=== PATIENT | female | born 1985 | race Two or more races ===

== ENCOUNTER 2016-08-30 18:41 | Emergency (ER) | payer SELFPAY ==
[~2016-08-30] VITALS: Ht 167.6 cm; Wt 56.0 kg
[~2016-08-30 18:41] MED LIST: MEDR4PAK3 PO; VENTAER INH
[2016-08-30 18:58] VITALS: BP 114/57; PULSE 78; RESP 12; TEMP 100; O2SAT 100
[2016-08-30] MEDS ORDERED: ERYTOIN10 LEFT EYE (19:34)
--- NOTE | 2016-08-30 19:35 | PD ---
HPI Chief Complaint: Foreign Body Time Seen by Provider: 19:34 Travel History International Travel<30 days: No Contact w/Intl Traveler<30days: No Traveled to known affect area: No History of Present Illness HPI 30-year-old female presents to the emergency room for evaluation of left eye redness, irritation, and drainage for the past 2 days. She had an injury 3 days ago in which the door struck her left open eye. Denies symptoms starting at that time. States they started the following morning. She woke up with her left eye slightly crusty. Reports associated photophobia and the son and blurry vision. She has not done anything for her symptoms. Denies significant pain. Denies any other upper respiratory symptoms. PFSH Social History Alcohol Use: No Tobacco Use: No Substance Use: No Allergies-Medications (Allergen,Severity, Reaction): Coded Allergies: No Known Allergies (Unverified , 05/12/15) Reported Meds & Prescriptions Reported Meds & Active Scripts Active Erythromycin Opth Oint 5 Mg/Gm Oint 1 Applic LEFT EYE QID Medrol Dosepak (Methylprednisolone) 4 Mg Madi 4 Mg PO DIRECTED TAKE DIRECTED Ventolin Hfa (Albuterol Sulfate) 18 Gm Aero 1 Puff INH Q4 PRN Review of Systems Except as stated in HPI: all other systems reviewed are Neg Physical Exam Narrative GENERAL: Well-nourished, well-developed female in no acute distress. Afebrile. Ambulatory.. SKIN: Focused skin assessment warm/dry. HEAD: Normocephalic. EYES: PERRL, EOMI without pain. No scleral icterus. Forcing staining reveals no corneal abrasion, ulceration, or foreign body. Negative Mary Ellen sign. Lid eversion reveals no foreign body. Visual acuity 20/15 bilaterally. Positive red light reflexes bilaterally. No photophobia on exam. Mild to moderate injection of the left eye. No chemosis. No discharge. NECK: Supple, trachea midline. No JVD or lymphadenopathy. CARDIOVASCULAR: Regular rate and rhythm without murmurs, gallops, or rubs. RESPIRATORY: Breath sounds equal bilaterally. No accessory muscle use. PSYCHIATRIC: No delusional thought processes. No hallucinations. Data Data Last Documented VS Vital Signs Date Time Temp Pulse Resp B/P Pulse Ox O2 Delivery O2 Flow Rate FiO2 08/30/16 18:58 100.0 78 12 114/57 100 MDM Medical Decision Making Medical Screen Exam Complete: Yes Emergency Medical Condition: Yes Medical Record Reviewed: Yes Differential Diagnosis Conjunctivitis, uveitis, scleritis Narrative Course 30-year-old female presents to the emergency room for evaluation of left eye redness, irritation, and drainage for the past 2 days. Patient had an injury 3 days ago. States the onset of symptoms was delayed. Physical exam is reassuring. Visual acuity is 20/15 bilaterally. Fluorescein staining reveals no foreign body or evidence of corneal disruption. Negative Mary Ellen sign. EOMI without pain. No photophobia exam. Physical exam is most consistent with conjunctivitis. Given patient's history, it is uncertain whether the injury introduced bacteria or was just incidental. She will be treated empirically with erythromycin and told to follow up with an bull chain operator. Told to return for worsening symptoms. Diagnosis Primary Impression: Conjunctivitis, left eye Qualified Code: H10.32 - Acute conjunctivitis of left eye, unspecified acute conjunctivitis type Referrals: Merlene James MD Patient Instructions: Conjunctivitis (ED), General Instructions Additional Instructions: Rest and drink plenty of fluids. Apply ointment as directed, for 5-7 days. Follow-up with bull chain operator. Return to the emergency room for worsening symptoms. Med/Other Pt SpecificInfo: Prescription(s) given Scripts Erythromycin Opth Oint 5 Mg/Gm Oint1 Applic LEFT EYE QID #1 TUBE Ref 0 Prov:Reginald Art MD 08/30/16 Disposition: 01 DISCHARGE HOME Condition: Stable Eve Velasquez Aug 30, 2016 19:35
== END 2016-08-30 19:54 | disposition home or self-care (01) ==
LOC: EDBD → PHEFT 18:41
DX: H10.32 Unspecified acute conjunctivitis, left eye (principal)
CPT/HCPCS: 99283

== ENCOUNTER 2016-09-02 10:04 | Emergency (ER) | payer SELFPAY ==
[~2016-09-02] VITALS: Ht 167.6 cm; Wt 56.0 kg
[~2016-09-02 10:04] MED LIST changes: +ERYTOIN10 LEFT EYE
[2016-09-02 10:10] VITALS: BP 102/54; PULSE 80; RESP 16; TEMP 98.8; O2SAT 100
--- NOTE | 2016-09-02 10:55 | PD ---
HPI Chief Complaint: Eye Problems/Injury Time Seen by Provider: 10:33 Travel History International Travel<30 days: No Contact w/Intl Traveler<30days: No Traveled to known affect area: No History of Present Illness HPI The patient was seen and examined in the presence of the nurse. This patient was seen here 3 days ago and diagnosed with conjunctivitis of the left eye. She is started on erythromycin ointment. She came back today because she has not improved. Prior still red. She is not having eye pain or vision loss. The day before the symptoms started she was hit in the eye but did not have any redness or discomfort or any problem until the following day. She did have drainage from the eye and it was felt infection more likely than traumatic injury. 3 days ago she got recommendations to follow-up with director child but she has not made any effort to do so. Instead she came back here. Duration 3 days PFSH Past Medical History Hx Anticoagulant Therapy: No Diabetes: No Tetanus Vaccination: > 5 Years Influenza Vaccination: No ?: Not Social History Alcohol Use: No Tobacco Use: No Substance Use: No Allergies-Medications (Allergen,Severity, Reaction): Coded Allergies: No Known Allergies (Unverified , 09/02/16) Reported Meds & Prescriptions Reported Meds & Active Scripts Active Erythromycin Opth Oint 5 Mg/Gm Oint 1 Applic LEFT EYE QID Review of Systems General / Constitutional: No: Fever HENT: No: Headaches Cardiovascular: No: Chest Pain or Discomfort Physical Exam Narrative SKIN: Focused skin assessment reveals no rash or ulcers. Skin is warm and dry. Palpation shows no induration or nodules. NECK: Symmetrical appearance, midline trachea. No mass or crepitus. Thyroid without enlargement, tenderness, or mass. Right sclerae clear Left sclera shows some diffuse injection Pupil function is normal Extraocular muscles intact No active drainage at this time Data Data Last Documented VS Vital Signs Date Time Temp Pulse Resp B/P Pulse Ox O2 Delivery O2 Flow Rate FiO2 09/02/16 10:10 98.8 80 16 102/54 100 MDM Medical Decision Making Medical Screen Exam Complete: Yes Emergency Medical Condition: Yes Medical Record Reviewed: Yes Differential Diagnosis Conjunctivitis, traumatic iritis, scleral irritation Narrative Course I have reviewed the patient's electronic medical record. I reviewed her visit from 3 days ago Reiterated that she should follow-up with director child for more detailed eye exam I think she most likely has an acute viral conjunctivitis and therefore the erythromycin medication is not going to do much. There is no purulent drainage. Diagnosis Primary Impression: Conjunctivitis, left eye Qualified Code: B30.9 - Acute viral conjunctivitis of left eye Additional Instructions: Follow-up with director child as we recommended 3 days ago Disposition: 01 DISCHARGE HOME Condition: Stable Dakota Mead MD Sep 02, 2016 10:55
== END 2016-09-02 11:00 | disposition home or self-care (01) ==
LOC: EDBD → PHED 10:04
DX: B30.9 Viral conjunctivitis, unspecified (principal)
CPT/HCPCS: 99282

== ENCOUNTER 2016-09-17 11:09 | Emergency (ER) | payer SELFPAY ==
[~2016-09-17] VITALS: Ht 167.6 cm; Wt 57.0 kg
[~2016-09-17 11:09] MED LIST changes: -MEDR4PAK3 PO; -VENTAER INH
[2016-09-17 11:12] VITALS: BP 116/62; PULSE 83; RESP 16; TEMP 98.6; O2SAT 100
--- NOTE | 2016-09-17 11:39 | PD ---
HPI Chief Complaint: Dizziness Time Seen by Provider: 11:38 Travel History International Travel<30 days: No Contact w/Intl Traveler<30days: No Traveled to known affect area: No History of Present Illness HPI 31-year-old Afro-[place] female presents the emergency department with episode of dizziness and lightheadedness earlier this morning. She had nausea at this time. She had no vomiting. She has no headache or other current symptoms at this time. Patient denies history of anemia, diabetes, and does not know if she might be . Her last partial. It was August 15, but she states she has irregular periods. She has no recent heavy vaginal bleeding or abdominal has no urinary symptoms or vaginal symptoms. She denies shortness of breath with exertion. She currently feels well. She has no known drug allergies. PFSH Past Medical History Medical History: Denies Significant Hx Hx Anticoagulant Therapy: No Diabetes: No Influenza Vaccination: No ?: Unknown LMP: AUGUST 15, 2016 Past Surgical History Surgical History: No Previous Surgery Social History Alcohol Use: No Tobacco Use: No Substance Use: No Allergies-Medications (Allergen,Severity, Reaction): Coded Allergies: No Known Allergies (Unverified , 09/17/16) Reported Meds & Prescriptions Reported Meds & Active Scripts Active ( Vit-Ferrous Fumarate) 1 Tab Tab 1 Tab PO DAILY Zofran (Ondansetron HCl) 4 Mg Tab 4 Mg PO Q6HR PRN Cephalexin 500 Mg Cap 500 Mg PO Q8H Review of Systems Except as stated in HPI: all other systems reviewed are Neg General / Constitutional: No: Fever Eyes: No: Visual changes HENT: Positive: Lightheadedness, No: Headaches, Vertigo, Sore Throat, Rhinitis , Rhinorrhea, Congestion, Nosebleed, Neck Stiffness, Neck Pain, Masses, Gingival Bleeding, Dental Difficulties, Ear Discharge, Earache Cardiovascular: No: Chest Pain or Discomfort Respiratory: No: Shortness of Breath Gastrointestinal: Positive: Nausea, No: Vomiting, Diarrhea, Abdominal Pain Genitourinary: No: Dysuria, Discharge, Vaginal Bleeding Musculoskeletal: No: Pain Skin: No Rash Neurologic: No: Weakness Psychiatric: No: Depression Endocrine: No: Polydipsia Hematologic/Lymphatic: No: Easy Bruising Physical Exam Narrative GENERAL: Patient appears in no acute distress. SKIN: Warm and dry. Normal color. Mild pallor. HEAD: Atraumatic. Normocephalic. EYES: Pupils equal and round. No scleral icterus. Moderate conjunctival pallor is noted. No injection or drainage. ENT: No nasal bleeding or discharge. Mucous membranes pink and moist. Pharynx is clear. Airway is patent NECK: Trachea midline. Supple and nontender. No palpable thyroid. CARDIOVASCULAR: Regular rate and rhythm. RESPIRATORY: No accessory muscle use. Clear to auscultation. Breath sounds equal bilaterally. GASTROINTESTINAL: Abdomen soft, non-tender, nondistended. Hepatic and splenic margins not palpable. MUSCULOSKELETAL: Extremities without clubbing, cyanosis, or edema. No obvious deformities. NEUROLOGICAL: Awake and alert. No obvious cranial nerve deficits. Motor grossly within normal limits. Five out of 5 muscle strength in the arms and legs. Normal speech. PSYCHIATRIC: Appropriate mood and affect; insight and judgment normal. Data Data Last Documented VS Vital Signs Date Time Temp Pulse Resp B/P Pulse Ox O2 Delivery O2 Flow Rate FiO2 09/17/16 12:14 98 Room Air 09/17/16 11:44 65 108/60 78 112/62 92 108/71 09/17/16 11:12 98.6 16 Orders Electrocardiogram (09/17/16 11:44) Beta Hcg (Quant/Titer) (09/17/16 11:44) Ed Urine Pregnancytest Poc (09/17/16 11:44) Complete Blood Count With Diff (09/17/16 11:44) Comprehensive Metabolic Panel (09/17/16 11:44) Magnesium (Mg) (09/17/16 11:44) Urinalysis - C+S If Indicated (09/17/16 11:44) Ecg Monitoring (09/17/16 11:44) Iv Access Insert/Monitor (09/17/16 11:44) Oximetry (09/17/16 11:44) Sodium Chloride 0.9% Flush (Ns Flush) (09/17/16 11:45) Sodium Chlor 0.9% 1000 Ml Inj (Ns 1000 M (09/17/16 11:44) Orthostatic Vital Signs (09/17/16 11:44) Urine Culture (09/17/16 12:00) Labs Laboratory Tests Test 09/17/16 09/17/16 12:00 12:05 Urine Color DARK-YELLOW Urine Turbidity CLOUDY Urine pH 8.0 Urine Specific [place] 1.030 Urine Protein 30 mg/dL Urine Glucose (UA) NEG mg/dL Urine Ketones NEG mg/dL Urine Occult Blood NEG Urine Nitrite NEG Urine Bilirubin NEG Urine Urobilinogen 2.0 MG/DL Urine Leukocyte Esterase LARGE Urine RBC 5 /hpf Urine WBC 13 /hpf Urine Squamous Epithelial 32 /hpf Cells Urine Renal Epithelial Cells <1 /hpf Urine Amorphous Sediment MOD Urine Mucus MANY /lpf Microscopic Urinalysis Comment CULTURE INDICATED White Blood Count 7.0 TH/MM3 Red Blood Count 3.99 MIL/MM3 Hemoglobin 12.2 GM/DL Hematocrit 36.4 % Mean Corpuscular Volume 91.2 FL Mean Corpuscular Hemoglobin 30.6 PG Mean Corpuscular Hemoglobin 33.6 % Concent Red Cell Distribution Width 13.3 % Platelet Count 263 TH/MM3 Mean Platelet Volume 8.0 FL Neutrophils (%) (Auto) 74.5 % Lymphocytes (%) (Auto) 16.3 % Monocytes (%) (Auto) 8.8 % Eosinophils (%) (Auto) 0.3 % Basophils (%) (Auto) 0.1 % Neutrophils # (Auto) 5.2 TH/MM3 Lymphocytes # (Auto) 1.1 TH/MM3 Monocytes # (Auto) 0.6 TH/MM3 Eosinophils # (Auto) 0.0 TH/MM3 Basophils # (Auto) 0.0 TH/MM3 CBC Comment DIFF FINAL Differential Comment Sodium Level 133 MEQ/L Potassium Level 3.5 MEQ/L Chloride Level 102 MEQ/L Carbon Dioxide Level 23.1 MEQ/L Anion Gap 8 MEQ/L Blood Urea Nitrogen 7 MG/DL Creatinine 0.52 MG/DL Estimat Glomerular Filtration 138 ML/MIN Rate Random Glucose 102 MG/DL Calcium Level 9.4 MG/DL Magnesium Level 2.2 MG/DL Total Bilirubin 0.3 MG/DL Aspartate Amino Transf 8 U/L (AST/SGOT) Alanine Aminotransferase 16 U/L (ALT/SGPT) Alkaline Phosphatase 60 U/L Total Protein 7.7 GM/DL Albumin 3.7 GM/DL Human Chorionic Gonadotropin, [id number] MIU/ML Quant [facility] Medical Decision Making Medical Screen Exam Complete: Yes Emergency Medical Condition: Yes Differential Diagnosis Lightheaded dizziness. Weakness. Near syncope. Possible . Anemia. Narrative Course Patient is medically stable at this time. Orthostatics were performed showing no obvious changes in blood pressure or pulse. Urine is positive. Labs ordered including CBC, CMP, beta hCG, and magnesium. EKG is performed as well as IV bolus of 1000 mL normal saline. EKG shows normal sinus rhythm. CBC is normal. Sodium is 133, potassium is 3.5, BUN is 7, creatinine is 0.52. Serum hCG is 130 ,270. Urinalysis suggestive of urinary tract infection. Patient will be treated with Keflex 500 mg 3 times a day 7 days as well as started on a nasal vitamins for . She is given Zofran 4 mg one every 6 hours when necessary nausea. Patient is [facility] care. Patient can return to emergency department as needed. Diagnosis Primary Impression: Qualified Code: Z3A.01 - Less than 8 weeks gestation of Additional Impressions: Nausea Urinary tract infection Qualified Code: N30.00 - Acute cystitis without hematuria Referrals: [facility] call for appointment Patient Instructions: Acute Nausea and Vomiting (ED), General Instructions Additional Instructions: Serum hCG is 130,270. Urinalysis suggestive of urinary tract infection. Urine is positive. Patient will be treated with Keflex 500 mg 3 times a day 7 days as well as started on a nasal vitamins for . She is given Zofran 4 mg one every 6 hours when necessary nausea. Patient is referred to the women's [place] for care. Patient can return to emergency department as needed. Scripts Vit-Ferrous Fumarate ()1 Tab Tab1 Tab PO DAILY #30 TAB Ref 0 Prov:Kaushal Bruno MD 09/17/16 Ondansetron (Zofran)4 Mg Tab4 Mg PO Q6HR PRN (NAUSEA OR VOMITING) #12 TAB Prov:Kaushal Bruno MD 09/17/16 Cephalexin 500 Mg Tou211 Mg PO Q8H #21 CAP Prov:Kaushal Bruno MD 09/17/16 Disposition: 01 DISCHARGE HOME Condition: Stable Paul Batista Sep 17, 2016 11:39
[2016-09-17 11:44] VITALS: BP_SYST 108; BP_SYST 112; BP_DIAS 60; BP_DIAS 62; BP_DIAS 71
[2016-09-17] MEDS ORDERED: SODIUM CHLOR 0.9% 1000 ML INJ 1,000 ML IV ONE (11:44)
[2016-09-17] MEDS ORDERED: SODIUM CHLORIDE 0.9% FLUSH 10 ML FLUSH IVF PRN (11:45)
[2016-09-17 12:14] VITALS: O2SAT 98
[2016-09-17 12:50] LABS: ALT (GPT) 16 U/L (10-53); ANION GAP 8 MEQ/L (5-15); AST (GOT) 8 U/L (15-37); BICARBONATE 23.1 MEQ/L (21.0-32.0); BLOOD UREA NITROGEN 7 MG/DL (7-18); CHLORIDE 102 MEQ/L (98-107); GLOMERULAR FILTRATION RATE 138 ML/MIN (>89); MAGNESIUM 2.2 MG/DL (1.5-2.5); POTASSIUM 3.5 MEQ/L (3.5-5.1); SODIUM (NA) 133 MEQ/L (136-145)
[2016-09-17 12:57] LABS: AUTOMATED NEUTROPHIL # 5.2 TH/MM3 (1.8-7.7); BASOPHIL % 0.1 % (0.0-2.0); EOSINOPHIL % 0.3 % (0.0-4.0); HEMATOCRIT 36.4 % (35.0-46.0); HEMO FLAGS DIFF FINAL; LYMPH % 16.3 % (9.0-44.0); LYMPHOCYTE # 1.1 TH/MM3 (1.0-4.8); MEAN CELL VOLUME 91.2 FL (80.0-100.0); MEAN CORPUSCULAR HEMOGLOBIN 30.6 PG (27.0-34.0); MEAN CORPUSCULAR HGB CONC 33.6 % (32.0-36.0); MONO % 8.8 % (0.0-8.0); NEUT % 74.5 % (16.0-70.0); PLATELET COUNT 263 TH/MM3 (150-450); RED BLOOD COUNT 3.99 MIL/MM3 (4.00-5.30); RED CELL DISTRIBUTION WIDTH 13.3 % (11.6-17.2)
[2016-09-17 13:06] LABS: BLOOD, URINE NEG (NEG); COMMENT (UR) CULTURE INDICATED; CULTURE IF INDICATED CULTURE INDICATED; GLUCOSE,URINE NEG (NEG); KETONE, URINE NEG (NEG); MUCUS URINE MANY /lpf (OCC); NITRITE,URINE NEG (NEG); RENAL EPITHELIAL CELLS <1 /hpf; SQUAMOUS EPITHELIAL CELL URINE 32 /hpf (0-5); URINE COLOR DARK-YELLOW (YELLW/STRAW)
[2016-09-17 13:07] LABS: ALKALINE PHOSPHATASE 60 U/L (45-117); BETA HCG QUANT 130270 MIU/ML (0-5); TOTAL BILIRUBIN ADULT 0.3 MG/DL (0.2-1.0)
[2016-09-17] MEDS ORDERED: TRICTAB PO (13:12)
[2016-09-17] MEDS ORDERED: ZOFR4TAB PO (13:12)
[2016-09-17] MEDS ORDERED: CEPH500C PO (13:12)
--- NOTE | 2016-09-17 13:30 | PD ---
Data Data Last Documented VS Vital Signs Date Time Temp Pulse Resp B/P Pulse Ox O2 Delivery O2 Flow Rate FiO2 09/17/16 12:14 98 Room Air 09/17/16 11:44 65 108/60 78 112/62 92 108/71 09/17/16 11:12 98.6 16 Orders Electrocardiogram (09/17/16 11:44) Beta Hcg (Quant/Titer) (09/17/16 11:44) Ed Urine Pregnancytest Poc (09/17/16 11:44) Complete Blood Count With Diff (09/17/16 11:44) Comprehensive Metabolic Panel (09/17/16 11:44) Magnesium (Mg) (09/17/16 11:44) Urinalysis - C+S If Indicated (09/17/16 11:44) Ecg Monitoring (09/17/16 11:44) Iv Access Insert/Monitor (09/17/16 11:44) Oximetry (09/17/16 11:44) Sodium Chloride 0.9% Flush (Ns Flush) (09/17/16 11:45) Sodium Chlor 0.9% 1000 Ml Inj (Ns 1000 M (09/17/16 11:44) Orthostatic Vital Signs (09/17/16 11:44) Urine Culture (09/17/16 12:00) Labs Laboratory Tests Test 09/17/16 09/17/16 12:00 12:05 Urine Color DARK-YELLOW Urine Turbidity CLOUDY Urine pH 8.0 Urine Specific [place] 1.030 Urine Protein 30 mg/dL Urine Glucose (UA) NEG mg/dL Urine Ketones NEG mg/dL Urine Occult Blood NEG Urine Nitrite NEG Urine Bilirubin NEG Urine Urobilinogen 2.0 MG/DL Urine Leukocyte Esterase LARGE Urine RBC 5 /hpf Urine WBC 13 /hpf Urine Squamous Epithelial 32 /hpf Cells Urine Renal Epithelial Cells <1 /hpf Urine Amorphous Sediment MOD Urine Mucus MANY /lpf Microscopic Urinalysis Comment CULTURE INDICATED White Blood Count 7.0 TH/MM3 Red Blood Count 3.99 MIL/MM3 Hemoglobin 12.2 GM/DL Hematocrit 36.4 % Mean Corpuscular Volume 91.2 FL Mean Corpuscular Hemoglobin 30.6 PG Mean Corpuscular Hemoglobin 33.6 % Concent Red Cell Distribution Width 13.3 % Platelet Count 263 TH/MM3 Mean Platelet Volume 8.0 FL Neutrophils (%) (Auto) 74.5 % Lymphocytes (%) (Auto) 16.3 % Monocytes (%) (Auto) 8.8 % Eosinophils (%) (Auto) 0.3 % Basophils (%) (Auto) 0.1 % Neutrophils # (Auto) 5.2 TH/MM3 Lymphocytes # (Auto) 1.1 TH/MM3 Monocytes # (Auto) 0.6 TH/MM3 Eosinophils # (Auto) 0.0 TH/MM3 Basophils # (Auto) 0.0 TH/MM3 CBC Comment DIFF FINAL Differential Comment Sodium Level 133 MEQ/L Potassium Level 3.5 MEQ/L Chloride Level 102 MEQ/L Carbon Dioxide Level 23.1 MEQ/L Anion Gap 8 MEQ/L Blood Urea Nitrogen 7 MG/DL Creatinine 0.52 MG/DL Estimat Glomerular Filtration 138 ML/MIN Rate Random Glucose 102 MG/DL Calcium Level 9.4 MG/DL Magnesium Level 2.2 MG/DL Total Bilirubin 0.3 MG/DL Aspartate Amino Transf 8 U/L (AST/SGOT) Alanine Aminotransferase 16 U/L (ALT/SGPT) Alkaline Phosphatase 60 U/L Total Protein 7.7 GM/DL Albumin 3.7 GM/DL Human Chorionic Gonadotropin, [id number] MIU/ML Quant MDM Supervised Visit with [facility]: Yes Narrative Course The history, exam, and medical decision-making in the associated mid-level provider note were completed with my assistance. I reviewed and agree with the findings presented. I attest that I had a [id number] encounter with the patient on the same day, and personally performed and documented my assessment and findings in the medical record. *My assessment and Findings: 31-year-old with episode nausea and dizziness this morning, found to be early . Looks well. No pelvic cramping bleeding or abdominal pain. Recommend outpatient follow-up. Diagnosis Primary Impression: Qualified Code: Z3A.01 - Less than 8 weeks gestation of Additional Impressions: Urinary tract infection Qualified Code: N30.00 - Acute cystitis without hematuria Nausea Referrals: [facility] call for appointment Patient Instructions: General Instructions, (ED), Acute Nausea and Vomiting (ED) Departure Forms: Tests/Procedures Additional Instruction: Serum hCG is 130,270. Urinalysis suggestive of urinary tract infection. Urine is positive. Patient will be treated with Keflex 500 mg 3 times a day 7 days as well as started on a nasal vitamins for . She is given Zofran 4 mg one every 6 hours when necessary nausea. Patient is [facility] for care. Patient can return to emergency department as needed. Scripts Vit-Ferrous Fumarate ()1 Tab Tab1 Tab PO DAILY #30 TAB Ref 0 Prov:Kaushal Bruno MD 09/17/16 Ondansetron (Zofran)4 Mg Tab4 Mg PO Q6HR PRN (NAUSEA OR VOMITING) #12 TAB Prov:Kaushal Bruno MD 09/17/16 Cephalexin 500 Mg [id number] Mg PO Q8H #21 CAP Prov:Kaushal Bruno MD 09/17/16 Disposition: 01 DISCHARGE HOME Condition: Stable Kaushal Bruno MD Sep 17, 2016 13:30
--- NOTE | 2016-09-18 17:07 | EKG ---
Date Performed: 09/17/2016 Time Performed: 12:02:17 PTAGE: 31 years EKG: Sinus rhythm VOLTAGE CRITERIA FOR LVH ABNORMAL ECG NO PREVIOUS TRACING DOCTOR: William Phillips Interpretating Date/Time 09/18/2016 17:04:51
== END 2016-09-17 13:34 | disposition home or self-care (01) ==
LOC: NEPD 11:09
DX: O23.41 Unspecified infection of urinary tract in pregnancy, first trimester (principal); B96.89 Other specified bacterial agents as the cause of diseases classified elsewhere; O26.891 Other specified pregnancy related conditions, first trimester; R11.0 Nausea; R42 Dizziness and giddiness; R94.31 Abnormal electrocardiogram [ECG] [EKG]; Z3A.01 Less than 8 weeks gestation of pregnancy; Z34.91 Encounter for supervision of normal pregnancy, unspecified, first trimester
CPT/HCPCS: 80053; 81001; 83735; 84702; 84703; 85025; 87086; 93005; 96360; 99284; J7030